=== PATIENT | female | born 1955 | race Caucasian/White ===

== ENCOUNTER 2019-12-07 15:42 | Emergency (ER) | payer MEDICAID ==
[~2019-12-07] VITALS: Ht 162.6 cm; Wt 59.9 kg
--- NOTE | 2019-12-07 15:48 | NUR ---
[id number], from street, weak x 1 day, to ER bed 14, hooked to monitor, changed to hosp gown, warm blanket provided, awaiting MD prasad
--- NOTE | 2019-12-07 15:58 | NUR ---
Dr Schroeder at bedside
--- NOTE | 2019-12-07 16:12 | NUR ---
IV LINE ESTABLISHED BLOOD DRAWN AND SENT TO LAB.
[2019-12-07 16:27] LABS: BASOPHILS % (AUTO) 0.1 % (0.0-2.0); EOSINOPHILS % (AUTO) 0.1 % (0.0-6.0); HEMATOCRIT 32 % (33-45); HEMOGLOBIN 10.8 g/dL (11.5-14.8); LYMPHOCYTES # (AUTO) 1.3 /CMM (0.8-4.8); LYMPHOCYTES % (AUTO) 15.9 % (20.0-44.0); MEAN CORPUSCULAR HGB CONC 34 g/dl (31.0-36.0); MEAN CORPUSCULAR VOLUME 117 fL (82-100); MONOCYTES # (AUTO) 1.7 /CMM (0.1-1.30); MONOCYTES % (AUTO) 20.7 % (2.0-12.0); NEUTROPHILS # (AUTO) 5.1 /CMM (1.8-8.9); NEUTROPHILS % (AUTO) 63.2 % (43.0-81.0); PLATELET COUNT (AUTO) 190 /CMM (150-450); RED BLOOD CELL COUNT(AUTO) 2.72 MIL/uL (4.0-5.2); WHITE BLOOD COUNT (AUTO) 8.1 K/uL (4.3-11.0)
[2019-12-07] MEDS ORDERED: IV NS 0.9% 1,000 ML BAG IV ONE (16:30)
[2019-12-07 16:32] LABS: CALCIUM, SERUM 8.7 mg/dL (8.5-10.1); POTASSIUM 3.3 mmol/L (3.5-5.1)
[2019-12-07 16:40] LABS: ALBUMIN 3.3 g/dL (3.4-5.0); BILIRUBIN,DIRECT 0.3 mg/dL (0.0-0.2); BILIRUBIN,TOTAL 0.8 mg/dL (0.2-1.0); TOTAL PROTEIN, SERUM 6.6 g/dL (6.4-8.2)
[2019-12-07 17:51] VITALS: BP 138/88
--- NOTE | 2019-12-07 17:51 | NUR ---
IV removed. Catheter intact and site benign. Pressure and 4x4 applied to site. No bleeding noted.
--- NOTE | 2019-12-07 17:51 | NUR ---
Patient given written and verbal discharge instructions. Patient verbalizes understanding of instructions. Patient is ambulatory with steady gait. Refuses offer of correction placement. Patient given list of available shelters in surrounding area.
[2019-12-07 17:52] LABS: LYMPHOCYTES % (MANUAL) 20 % (16-48); MONOCYTES % (MANUAL) 20 % (0-11.0); NEUTROPHILS % (MANUAL) 60 (42-76)
== END 2019-12-07 17:53 | disposition home or self-care (01) ==
LOC: ER 15:45
DX: E86.0 Dehydration (principal); Z59.0 Homelessness
CPT/HCPCS: 36415; 80048; 80076; 85025; 96360; 99283; J7030

== ENCOUNTER 2019-12-08 12:36 | Emergency (ER) | payer MEDICAID ==
[~2019-12-08] VITALS: Ht 162.6 cm; Wt 59.4 kg
--- NOTE | 2019-12-08 12:40 | NUR ---
PT BIB [address] AND [employer] OFF[employer]ERS, FOUND WANDERING IN [facility]. PT IS AAOX3, NOT IN RESPIRATORY DISTRESS, HOOKED TO CRANBERRY SORTER, KEPT RESTED AND COMFORTABLE. WILL CONTINUE TO MONITOR.
--- NOTE | 2019-12-08 12:53 | NUR ---
CALLED SHEELA, CONNECTION WORKER, RE: PLACEMENT. PER DR MAI. SHE WILL SEE THE PT SOON SHE CAN.
[2019-12-08 13:07] LABS: BASOPHILS # (AUTO) 0.1 /CMM (0.0-0.2); BASOPHILS % (AUTO) 1.3 % (0.0-2.0); EOSINOPHILS % (AUTO) 0.4 % (0.0-6.0); HEMATOCRIT 33 % (33-45); HEMOGLOBIN 10.8 g/dL (11.5-14.8); LYMPHOCYTES # (AUTO) 1.6 /CMM (0.8-4.8); LYMPHOCYTES % (AUTO) 23.7 % (20.0-44.0); MEAN CORPUSCULAR HGB CONC 33 g/dl (31.0-36.0); MEAN CORPUSCULAR VOLUME 120 fL (82-100); MONOCYTES # (AUTO) 1.5 /CMM (0.1-1.30); MONOCYTES % (AUTO) 21.7 % (2.0-12.0); NEUTROPHILS # (AUTO) 3.6 /CMM (1.8-8.9); NEUTROPHILS % (AUTO) 52.9 % (43.0-81.0); PLATELET COUNT (AUTO) 238 /CMM (150-450); RED BLOOD CELL COUNT(AUTO) 2.72 MIL/uL (4.0-5.2); WHITE BLOOD COUNT (AUTO) 6.9 K/uL (4.3-11.0)
[2019-12-08 13:15] LABS: CARBON DIOXIDE 16 mmol/L (21-32); CHLORIDE 96 mmol/L (98-107); CREATININE 0.8 mg/dL (0.6-1.3); GLUCOSE 57 mg/dL (74-106); POTASSIUM 3.2 mmol/L (3.5-5.1); SODIUM SERUM 135 mmol/L (136-145); UREA NITROGEN, BLOOD 7 mg/dL (7-18)
[2019-12-08 13:22] LABS: ACETAMINOPHEN 1 ug/ml (10-30); ALANINE AMINOTRANSFERASE 24 U/L (12-78); ALCOHOL, BLOOD < 3 mg/dL (0-0); ALKALINE PHOSPHATASE 104 U/L (46-116); ASPARTATE AMINOTRANSFERASE 46 U/L (15-37); BILIRUBIN,DIRECT 0.4 mg/dL (0.0-0.2); SALICYLATE 4.3 mg/dL (2.8-20.0); TOTAL PROTEIN, SERUM 6.2 g/dL (6.4-8.2)
--- NOTE | 2019-12-08 13:37 | NUR ---
PT LEFT FOR CT VIA GURNEY.
--- NOTE | 2019-12-08 14:17 | NUR ---
SHEELA, OIL WELL CABLE TOOL DRILLER, IS AT THE BEDSIDE SPEAKING TO THE PT.
--- NOTE | 2019-12-08 14:21 | NUR ---
URINE SAMPLE OBTAINED AND SENT TO LAB.
[2019-12-08 14:26] LABS: APPEARANCE,URINE SLIGHTLY CLOUDY (CLEAR); BILIRUBIN,URINE LARGE (NEGATIVE); BLOOD, URINE Negative Ery/uL (NEGATIVE); COLOR,URINE DARK YELLOW (YELLOW); KETONES,URINE 80 (NEGATIVE); LEUKOCYTE ESTERASE ,URINE Negative (NEGATIVE); NITRITE, URINE Negative (NEGATIVE); PROTEIN,URINE Trace mg/dl (NEGATIVE); UGLUCOSE Negative (NEGATIVE)
[2019-12-08 14:30] LABS: BACTERIA,URINE Many /HPF (None Seen); SQUAMOUS EPITHELIAL CELL,UR Many /HPF (None Seen)
[2019-12-08 15:20] LABS: EOSINOPHILS % (MANUAL) 1 % (0-4); LYMPHOCYTES % (MANUAL) 26 % (16-48); MONOCYTES % (MANUAL) 16 % (0-11.0); NEUTROPHILS % (MANUAL) 57 (42-76)
--- NOTE | 2019-12-08 15:31 | NUR ---
SPOKE TO SHEELA, CONSTRUCTION TECHNICIAN, WHO IS WAITING TO HEAR BACK FROM CLAUDETTE WILKERSON RE: PLACEMENT
--- NOTE | 2019-12-08 15:42 | NUR ---
ORDERED FOOD TRAY FOR PT.
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
--- NOTE | 2019-12-08 16:00 | NUR ---
SANTY NOTE: SANTY notified RAYMOND Dodge that clinicals were sent to [facility] ([phone]). If the pt is denied, ER staff should proceed to call the on-call body technician/painter for an evaluation for grave disability.
[2019-12-08] MEDS ORDERED: POTASSIUM CHLORIDE 20 MEQ TAB.PRT.SR PO ONE ×2 (18:00→18:02)
--- NOTE | 2019-12-08 18:20 | NUR ---
PT REC'D ANOTHER FOOD TRAY. PT IS TOLERATING PO WELL.
--- NOTE | 2019-12-08 18:40 | NUR ---
PT AMBULATED TO THE BATHROOM WITH ASSISTANCE.
--- NOTE | 2019-12-08 20:45 | NUR ---
PT APPEARS TO BE RESTING COMFORTABLY.
--- NOTE | 2019-12-08 22:36 | NUR ---
PER ANGEL LUIS AT [facility], NO BEDS AVAILABLE AT EITHER [facility] OR [facility].
--- NOTE | 2019-12-09 01:32 | NUR ---
PT RESTING COMFORTABLY IN BED. VSS. NO ACUTE DISTRESS NOTED. WILL CONTINUE TO MONITOR
--- NOTE | 2019-12-09 03:00 | NUR ---
PT RESTING COMFORTABLY IN BED. VITAL SIGNS STABLE. NO ACUTE DISTRESS NOTED AT THIS TIME. SITTER AT BEDSIDE, WILL CONTINUE TO MONITOR
--- NOTE | 2019-12-09 03:41 | NUR ---
ALBERTINA ADDISON FROM [facility] INTAKE, STILL NO BED AVAILABLE AT [facility] AT THIS TIME. CLINICAL INFORMATION ALSO BEING REVIEWED FOR [facility]. WILL FOLLOW UP
--- NOTE | 2019-12-09 04:30 | NUR ---
[facility] REQUESTING REPEAT RAMSEY, BS 121. AND CYN FROM [facility] MADE AWARE
--- NOTE | 2019-12-09 09:41 | NUR ---
ENERGY AND CONSERVATION TECHNICIAN followed up with [facility] intake to inquire about bed availability. Per Francesca, [facility] does not have a wheelchair accessible room and pt is being referred to [facility]. Per Francesca, she was informed by CRN at [facility] to contact them at 10AM for bed availability.
--- NOTE | 2019-12-09 11:31 | NUR ---
Per Francesca at [facility] intake, pt does not meet the criteria for voluntary psychiatric admission. SALVADOR and Dr. Pickard met with the pt bedside. Pt is alert and oriented x 2. Pt appears confused. When asked what year it is, pt reports it is 2020 and month is October or December. Pt reports she lives in her car with her but has no whereabouts of where he is. Pt reports, he might be in [facility] or in a hospital. Pt has no recollection of where the car is parked. Pt will require board and care placement due to safety concerns. SALVADOR collaborated with caser in [place] for placement. SALVADOR and [place] spoke with order administrator Lee Ann who requested for clinicals and will most likely accept the pt. Success Coach is available for support as needed.
--- NOTE | 2019-12-09 11:46 | NUR ---
PATIENT ASLEEP IN BED, EASILY AROUSABLE BY VOICE. HOOKED TO MONITOR, VSS. WILL CONTINUE TO MONITOR ACCORDINGLY, SITTER AT BEDSIDE FOR SAFETY
--- NOTE | 2019-12-09 11:49 | NUR ---
Joel torres in ED - 12/09/19 at 1149 by DEEPA PATIENT ASLEEP IN BED, EASILY AROUSABLE BY VOICE. HOOKED TO MONITOR, VSS. WILL CONTINUE TO MONITOR ACCORDINGLY, SITTER AT BEDSIDE FOR SAFETY
--- NOTE | 2019-12-09 20:53 | NUR ---
SPOKE WITH KYLEE ([phone]) (REFERRED BY [facility] FOR PLACEMENT) SHE SPOKE WITH PATIENT VIA TELEPHONE AND IS CURRENTLY WORKING FOR PLACEMENT/ TRYING TO LOCATE PT'S FAMILY. WILL FOLLOW UP
--- NOTE | 2019-12-10 01:30 | NUR ---
PT RESTING COMFORTABLY IN BED.VSS. NO ACUTE DISTRESS NOTED. SITTER AT BEDSIDE FOR SAFETY. WILL CONTINUE TO MONITOR
--- NOTE | 2019-12-10 02:53 | NUR ---
PT ASLEEP IN BED.VSS. NO ACUTE DISTRESS NOTED. SITTER AT BEDSIDE FOR SAFETY. WILL CONTINUE TO MONITOR
--- NOTE | 2019-12-10 06:44 | NUR ---
PATIENT IS AWAKE. WATCHING TELEVISION. NOT IN DISTRESS. BREATHING EVENLY AND UNLABORED ON ROOM AIR. SITTER AT BEDSIDE.
--- NOTE | 2019-12-10 09:09 | NUR ---
FOOD TRAY CALLED
--- NOTE | 2019-12-10 09:52 | NUR ---
SANTY NOTE: Carpet Measurer followed-up with Lee Ann ([phone]) regarding board and care referral sent yesterday. Per Lee Ann, she feels the pt is inappropriate for a board and care placement at this time due to her demented mental state and confusion. Per Lee Ann, she interviewed the pt last night and was able to obtain information regarding the pt's children's names (Tina and Luis). Lee Ann provided SANTY with the Luis's potential address ([address] [place] [address]) and suggested SANTY move forward with contacting [facility] to inform the pt's son of the pt's hospitalization and status. Aforementioned information endorsed to Application Infrastructure Engineer, EVERARDO Lim and LEVI Solano. SW will contact [facility] to f/u with son's address. SANTY asked LEVI Solano to inquire about a different placement option, per Carina's request.
--- NOTE | 2019-12-10 10:31 | NUR ---
SANTY NOTE: SANTY contacted [facility] ([phone]) twice for assistance on locating pt's son. No answer. SW will contact PD again.
--- NOTE | 2019-12-10 13:05 | NUR ---
kathy staton called for update, she will ask wade and give us a call back
--- NOTE | 2019-12-10 13:42 | NUR ---
SANTY NOTE: SANTY f/u with Garage Mechanic, Carina and [place] SIMS for any updates placement for the pt. There are no updates at this time. Endorsed to pt's RNMarlys. SANTY contacted [facility] ([phone]) and [facility] non-emergency dispatch ( ) numerous times; unsuccessful.
--- NOTE | 2019-12-10 14:43 | NUR ---
SANTY NOTE: SANTY contacted [facility] ([phone]) and spoke with Officer Dominic to request a unit to follow up on pt's son's address. Per Farhan Alfaro, a unit may not be dispatched unless requested through [facility] non-emergency dispatch ( ). SANTY contacted dispatch and was on hold for 20+ minutes with no success.
--- NOTE | 2019-12-10 15:10 | NUR ---
SANTY NOTE: Per LEVI Solano, the pt has been accepted to [facility] Board [facility] Care facility located in [address] [place], [place] [id number]. License #: [id number]. The pt will need transportation arrangements to the facility upon discharge. Endorsed to pt's Ron. RAYMOND Addendum: 12/10/19 at 1516 by ESEQUIEL MADERA Contact: Lee Ann [phone] Addendum: 12/10/19 at 1518 by ESEQUIEL MADERA Disregard note above re: contact. Please contact LORENA: [phone]
--- NOTE | 2019-12-10 19:09 | NUR ---
Report given to Galileo [phone] for continuity of care at [facility]
--- NOTE | 2019-12-10 19:15 | NUR ---
CALLED [facility] ETA IS [phone]
--- NOTE | 2019-12-10 20:23 | NUR ---
REPORT GIVEN TO [facility] FOR TRANSPORTATION [facility]. PT TRANSFERRED TO [facility] IN STABLE CONDITION
[2019-12-10 20:27] VITALS: BP 119/79
== END 2019-12-10 20:29 | disposition home or self-care (01) ==
LOC: ER 12:39
DX: R53.1 Weakness (principal); R41.82 Altered mental status, unspecified; E87.6 Hypokalemia; Z59.0 Homelessness; Z60.2 Problems related to living alone
CPT/HCPCS: 36415; 70450; 71045; 80048; 80076; 80305; 80307; 80329; 81001; 82962; 85025; 87086; 99285; G0480; 81000-TC